=== PATIENT | male | born 1990 | race Caucasian/White ===

== ENCOUNTER 2019-08-05 11:05 | Emergency (ER) | payer OTHER ==
[~2019-08-05] VITALS: Ht 188 cm; Wt 77.1 kg
== END 2019-08-05 14:20 | disposition home or self-care (01) ==
LOC: ER 11:05
DX: R21 Rash and other nonspecific skin eruption (principal); A60.02 Herpesviral infection of other male genital organs

== ENCOUNTER 2019-08-05 14:49 | Outpatient (CLI) | payer OTHER | END 2019-08-05 15:00 | disposition home or self-care (01) | LOC: LAB 14:49 | DX: Z11.3 Encounter for screening for infections with a predominantly sexual mode of transmission (principal) ==

== ENCOUNTER 2020-07-16 06:00 | Day surgery (SDC) | payer OTHER ==
[~2020-07-16 06:00] MED LIST: VALTREX1000 MG PO
[2020-07-16] MEDS ORDERED: ULTRAM50 MG PO (10:31)
[2020-07-16] MEDS ORDERED: SURFAK240 M1 PO (10:31)
== END 2020-07-16 13:30 | disposition home or self-care (01) ==
LOC: CIR.AMB 06:00
PROVIDERS: ATTEND Surgery
DX: I86.1 Scrotal varices (principal); Z20.828 Contact with and (suspected) exposure to other viral communicable diseases